=== PATIENT | male | born 1970 | race Caucasian/White ===

== ENCOUNTER 2023-07-14 08:45 | Emergency (ER) | payer MEDICAID ==
[~2023-07-14] VITALS: Ht 175.3 cm; Wt 77.1 kg
[2023-07-14 08:50] VITALS: BP_SYST 132; PULSE 68; RESP 18; TEMP 98; O2SAT 99
[2023-07-14] MEDS ORDERED: ALTEPLASE 2 MG VIAL MC ONE (09:15)
[2023-07-14] MEDS ORDERED: HYDROcodone/ACETAMIN 5-325 MG TAB (NORCO/ VICODIN) PO ONE ×2 (09:15→14:15)
[2023-07-14 12:54] LABS: INR 1.1 (0.80-1.20)
[2023-07-14 16:05] VITALS: BP_SYST 117; PULSE 67; RESP 18; TEMP 97.5; O2SAT 97
== END 2023-07-14 16:07 ==
LOC: SED 08:45
DX: T82.514A Breakdown (mechanical) of infusion catheter, initial encounter (principal); Z79.2 Long term (current) use of antibiotics; Z79.899 Other long term (current) drug therapy
CPT/HCPCS: 99285; 85610; 85730; 36415; J2997